=== PATIENT | female | born 1945 | race Caucasian/White ===

== ENCOUNTER 2016-11-23 12:22 | Day surgery (SDC) | payer OTHER ==
[2016-11-23] MEDS ORDERED: LR 1,000 ML IV ONE (13:22)
[2016-11-23] MEDS ORDERED: LIDOCAINE 1% 5 ML SDV ID PRN (13:22)
[2016-11-23] MEDS ORDERED: PROPOFOL 200 MG/20 ML VIAL ONE (13:34)
[2016-11-23 13:52] LABS: INR 1.16 (0.83-1.16); PROTIME(PATIENT) 14.8 SEC (12.0-15.0)
--- NOTE | 2016-11-24 13:44 | GPN ---
[f rep st] PROCEDURE NOTE DATE OF PROCEDURE: 11/23/2016 PROCEDURE: Esophagogastroduodenoscopy, endoscopic ultrasound. INDICATION: The patient is a 71-year-old female who recently had an upper endoscope and was found of a subepithelial lesion in the antrum of the stomach. She presents for further evaluation. CONSENT: Risks, benefits, and alternatives of the procedure were discussed in great detail with the patient. Risk of infection, bleeding, perforation, and sedation were discussed. All questions answered and informed consent obtained. MEDICATIONS: Propofol. Please see Anesthesia record for details. ESTIMATED BLOOD LOSS: Insignificant. ESOPHAGOGASTRODUODENOSCOPY EXAMINATION: The Olympus upper endoscope was introduced into the mouth and advanced to the esophagus. The proximal, mid, and distal esophagus are normal in appearance. The stomach was entered and closely examined including retroflexed views of angularis, cardia, and fundus. Along the lesser curvature in the antrum of the stomach, a 1 cm subepithelial lesion was seen. It was prodded multiple times. The duodenal bulb and second portion of the duodenum were normal in appearance. ENDOSCOPIC ULTRASOUND EXAMINATION: The Olympus linear echoendoscope was introduced into mouth and second portion of the duodenum. The pancreas was examined from the head to the tail where the spleen was seen. No pancreatic mass or cyst were seen. The common bile duct was seen without stone, stricture, or stenosis. The subepithelial lesion was carefully examined and was homogenously hyperechoic consistent with a lipoma. It measured about 8mm. IMPRESSION: 1. Lipoma. RECOMMENDATIONS: 1. Advance diet. 2. Restart diet. 3. Continue prior medications. /[id number]/MODL MTDD
== END 2016-11-23 15:20 | disposition home or self-care (01) ==
LOC: FSGY 12:22
PROVIDERS: ATTEND Internal Medicine Gastroenterology
PROC: 0DJ08ZZ Inspection of Upper Intestinal Tract, Via Natural or Artificial Opening Endoscopic (ICD-10-PCS; principal; 2016-11-23 13:45)
DX: K31.89 Other diseases of stomach and duodenum (principal); D17.9 Benign lipomatous neoplasm, unspecified; I47.9 Paroxysmal tachycardia, unspecified; Z86.718 Personal history of other venous thrombosis and embolism; Z79.01 Long term (current) use of anticoagulants
CPT/HCPCS: J2704